=== PATIENT | male | born 1935 | race Caucasian/White ===

== ENCOUNTER 2019-02-12 15:56 | Emergency (ER) | payer MEDICARE ==
[~2019-02-12] VITALS: Ht 170.2 cm; Wt 78.6 kg
[~2019-02-12 15:56] MED LIST: ACET325; ACET500 PO; ALBU90OI61 INH; AMLO5 PO; ASPI81CH PO; Aspir 8181 MG PO; BETA.05TC TOP; CENTRUM SILVER1 EAC2 PO; CLOP75 PO; Colace250 MG GT; DILT180 PO; ELIQUIS5 MG PO; ERYT.5TO RIGHTEYE; FLUT.05NI; FLUT44OIA INH; Flonase 0.05% N16 GM; HYDR25SUP PR; Isosorbide Mono30 MG PO; LANS30EC; METO25ER PO; METO50ER PO; Norco 5-325 Ta1 EACH PO; OMEP20ER PO; PRAV20 PO; Prilosec Otc20 MG; ROSU10TA PO; Robaxin500 MG PO; TIMO.25OPS LEFTEYE; URSO; URSO300 PO; WARF4; XARELTO20 MG PO
[2019-02-12 16:52] LABS: BASOPHILS ABSOLUTE AUTO 0.04 K/mm3 (0.00-0.23); BASOPHILS PERCENT AUTO 1 % (0-2); EOSINOPHILS ABSOLUTE AUTO 0.13 K/mm3 (0.00-0.68); EOSINOPHILS PERCENT AUTO 2 % (0-6); Hematocrit 44.1 % (37.0-53.0); Hemoglobin 14.7 g/dL (13.5-17.5); IMMATURE GRAN ABSOLUTE AUTO 0.02 K/mm3 (0.00-0.10); IMMATURE GRAN PERCENT AUTO 0 % (0-1); LYMPHOCYTES ABSOLUTE AUTO 2.01 K/mm3 (0.84-5.20); LYMPHOCYTES PERCENT AUTO 35 % (21-46); MONOCYTES ABSOLUTE AUTO 0.62 K/mm3 (0.16-1.47); MONOCYTES PERCENT AUTO 11 % (4-13); Mean Corpuscular HGB 34.1 pg (26.0-34.0); Mean Corpuscular HGB Conc 33.3 g/dL (31.5-36.5); Mean Corpuscular Volume 102 fL (80-100); Mean Platelet Volume 10.1 fL (9.1-12.4); NEUTROPHILS PERCENT AUTO 52 % (41-73); Platelet Count 235 K/mm3 (150-400); RDW Standard Deviation 49.9 fL (35.1-46.3); Red Blood Cell Count 4.31 M/mm3 (4.30-5.90); White Blood Cell Count 5.82 K/mm3 (4.00-11.30)
[2019-02-12 17:06] LABS: International Normalized Ratio 1.01; Prothrombin Time Results 10.7 Sec (9.7-11.5)
[2019-02-12 17:43] LABS: Alanine Aminotransfer (ALT/SGP 43 U/L (12-78); Albumin, Blood 3.7 g/dL (3.4-5.0); Albumin/Globulin Ratio 0.9 (0.8-1.8); Alk Phos 242 U/L (50-136); Anion Gap 8 mmol/L (6-16); Aspartate Aminotrans (AST/SGOT 42 U/L (12-37); Bilirubin, Total 0.9 mg/dL (0.1-1.0); Blood Urea Nitrogen 15 mg/dL (8-24); Bun/Creatinine Ratio 13.4 (12.0-20.0); CO2, Blood 27 mmol/L (21-32); Calcium, Blood 9.3 mg/dL (8.5-10.1); Chloride, Blood 102 mmol/L (98-108); Creatinine, Blood 1.12 mg/dL (0.60-1.20); Globulin, Blood 4.1 g/dL (2.2-4.0); Glomerular Filtration Rate >60 (60-); Glucose, Blood 97 mg/dL (70-99); Potassium, Blood 3.9 mmol/L (3.5-5.5); Sodium, Blood 137 mmol/L (136-145); Total Protein, Blood 7.8 g/dL (6.4-8.2)
== END 2019-02-12 20:09 | disposition home or self-care (01) ==
LOC: ER 15:56
PROVIDERS: Physician Assistant
DX: R00.2 Palpitations (principal); K21.9 Gastro-esophageal reflux disease without esophagitis; I10 Essential (primary) hypertension; I48.91 Unspecified atrial fibrillation; Z87.891 Personal history of nicotine dependence; Z79.899 Other long term (current) drug therapy
CPT/HCPCS: 36415; 71046; 80053; 85025; 85610; 93005; 93010; 99284-25

== ENCOUNTER 2020-01-22 13:53 | Emergency (ER) | payer MEDICARE ==
[~2020-01-22] VITALS: Ht 170.2 cm; Wt 81.7 kg
[2020-01-22 14:47] LABS: BASOPHILS ABSOLUTE AUTO 0.06 K/mm3 (0.00-0.23); BASOPHILS PERCENT AUTO 1 % (0-2); EOSINOPHILS ABSOLUTE AUTO 0.19 K/mm3 (0.00-0.68); EOSINOPHILS PERCENT AUTO 3 % (0-6); Hematocrit 40.3 % (37.0-53.0); Hemoglobin 13.3 g/dL (13.5-17.5); IMMATURE GRAN ABSOLUTE AUTO 0.02 K/mm3 (0.00-0.10); IMMATURE GRAN PERCENT AUTO 0 % (0-1); LYMPHOCYTES ABSOLUTE AUTO 2.13 K/mm3 (0.84-5.20); LYMPHOCYTES PERCENT AUTO 32 % (21-46); MONOCYTES PERCENT AUTO 15 % (4-13); Mean Corpuscular HGB 33.3 pg (26.0-34.0); Mean Corpuscular Volume 101 fL (80-100); Mean Platelet Volume 10.2 fL (9.1-12.4); NEUTROPHILS ABSOLUTE AUTO 3.32 K/mm3 (1.96-9.15); NEUTROPHILS PERCENT AUTO 49 % (41-73); Platelet Count 250 K/mm3 (150-400); RDW Coefficient Variation 12.8 % (11.7-14.2); RDW Standard Deviation 47.8 fL (35.1-46.3); White Blood Cell Count 6.72 K/mm3 (4.00-11.30)
[2020-01-22 15:02] LABS: International Normalized Ratio 1.06; Prothrombin Time Results 11.3 Sec (9.7-11.5)
[2020-01-22 15:08] LABS: Alanine Aminotransfer (ALT/SGP 41 U/L (12-78); Albumin, Blood 3.1 g/dL (3.4-5.0); Albumin/Globulin Ratio 0.7 (0.8-1.8); Alk Phos 232 U/L (50-136); Anion Gap 4 mmol/L (6-16); Aspartate Aminotrans (AST/SGOT 40 U/L (12-37); Bilirubin, Total 1.1 mg/dL (0.1-1.0); Blood Urea Nitrogen 17 mg/dL (8-24); Bun/Creatinine Ratio 15.7 (12.0-20.0); CO2, Blood 28 mmol/L (21-32); Calcium, Blood 8.8 mg/dL (8.5-10.1); Chloride, Blood 105 mmol/L (98-108); Creatinine, Blood 1.08 mg/dL (0.60-1.20); Globulin, Blood 4.3 g/dL (2.2-4.0); Glomerular Filtration Rate >60 (60-); Glucose, Blood 106 mg/dL (70-99); Sodium, Blood 137 mmol/L (136-145); Total Protein, Blood 7.4 g/dL (6.4-8.2); Troponin I <0.015 ng/mL (0.000-0.040)
[2020-01-22 16:00] LABS: Source, Urine Clean Catch
[2020-01-22 16:12] LABS: Blood, Urine Neg (Neg); Glucose Qualitative, Urine Neg (Neg); Ketones, Urine 1+ (Neg); Leukocyte Esterase, Urine 1+ (Neg); Nitrite, Urine Neg (Neg); Protein, Urine 1+ (Neg); Specific Gravity, Urine 1.015 (1.003-1.022); Urobilinogen, Urine 2+ (Normal)
[2020-01-22 16:20] LABS: Appearance, Urine Clear (Clear); Bilirubin, Urine 1+ (Neg); Color, Urine Yellow (P-Yellow)
[2020-01-22 16:21] LABS: Bacteria Rare /hpf; Red Blood Cells, Urine 0-2 /hpf (0-2); Squamous Epithelial Cells Not Seen /hpf (Few); White Blood Cells, Urine 0-2 /hpf (0-5)
[2020-01-22] MEDS ORDERED: AMLO5 PO (16:29)
== END 2020-01-22 16:41 | disposition home or self-care (01) ==
LOC: ER 13:53
PROVIDERS: Physician Assistant
DX: G45.9 Transient cerebral ischemic attack, unspecified (principal); K21.9 Gastro-esophageal reflux disease without esophagitis; I10 Essential (primary) hypertension; I48.91 Unspecified atrial fibrillation; Z88.5 Allergy status to narcotic agent; Z91.048 Other nonmedicinal substance allergy status; Z79.899 Other long term (current) drug therapy; Z79.02 Long term (current) use of antithrombotics/antiplatelets; Z87.891 Personal history of nicotine dependence
CPT/HCPCS: 36415; 70450; 80053; 81001; 82947; 84484; 85025; 85610; 93005; 93010; 93880; 99285-25

== ENCOUNTER → 2021-11-02 | Outpatient (CLI) | payer MEDICARE ==
[~2021-11-02] MED LIST changes: +AMLODIPINE BESYL5 MG PO; +Betamethasone D15 G2 UD; +CLARISPRAY9.9 M1; +CYCL10 PO; +Celebrex200 MG PO; +DILT120 PO; +DILTIAZEM 24HR120 M2 PO; +ERYT1OIN UD; +LATA.005SO BOTHEYES; +LATANOPROST2.5 M1 BOTHEYES; +LOSARTAN POTAS100 M1 PO; +PRED20 PO; +PROAIR DIGIHAL90 MCG; -Prilosec Otc20 MG; +Prilosec Otc20 MG PO; +ROSUVASTATIN CA10 MG PO; +URSODIOL250 MG PO
== END | disposition home or self-care (01) ==
LOC: LAB SHORT 15:33 → PLD 15:33
DX: L57.0 Actinic keratosis (principal); L98.8 Other specified disorders of the skin and subcutaneous tissue
CPT/HCPCS: 88305

== ENCOUNTER → 2021-11-12 | Outpatient (CLI) | payer MEDICARE ==
[2021-11-12 10:41] LABS: BASOPHILS ABSOLUTE AUTO 0.04 K/mm3 (0.00-0.23); BASOPHILS PERCENT AUTO 1 % (0-2); EOSINOPHILS ABSOLUTE AUTO 0.19 K/mm3 (0.00-0.68); EOSINOPHILS PERCENT AUTO 3 % (0-6); Hematocrit 40.3 % (37.0-53.0); Hemoglobin 13.4 g/dL (13.5-17.5); IMMATURE GRAN ABSOLUTE AUTO 0.02 K/mm3 (0.00-0.10); IMMATURE GRAN PERCENT AUTO 0 % (0-1); LYMPHOCYTES PERCENT AUTO 22 % (21-46); MONOCYTES ABSOLUTE AUTO 0.69 K/mm3 (0.16-1.47); MONOCYTES PERCENT AUTO 12 % (4-13); Mean Corpuscular HGB 33.2 pg (26.0-34.0); Mean Corpuscular HGB Conc 33.3 g/dL (31.5-36.5); Mean Corpuscular Volume 100 fL (80-100); Mean Platelet Volume 9.7 fL (9.1-12.4); NEUTROPHILS PERCENT AUTO 62 % (41-73); Platelet Count 279 K/mm3 (150-400); RDW Coefficient Variation 14.8 % (11.7-14.2); RDW Standard Deviation 53.9 fL (35.1-46.3); Red Blood Cell Count 4.04 M/mm3 (4.30-5.90); White Blood Cell Count 5.94 K/mm3 (4.00-11.30)
[2021-11-12 10:50] LABS: Albumin/Globulin Ratio 0.6 (0.8-1.8); Bilirubin, Total 1.9 mg/dL (0.1-1.0); Bun/Creatinine Ratio 13.8 (12.0-20.0); Creatinine, Blood 1.23 mg/dL (0.60-1.20); Globulin, Blood 4.9 g/dL (2.2-4.0); Potassium, Blood 4.3 mmol/L (3.5-5.5); Total Protein, Blood 7.9 g/dL (6.4-8.2)
== END | disposition home or self-care (01) ==
LOC: LAB SHORT 10:35
PROVIDERS: General Practice
DX: R05.9 Cough, unspecified (principal)
CPT/HCPCS: 80053; 85025

== ENCOUNTER → 2022-12-16 | Outpatient (CLI) | payer OTHER | END | disposition home or self-care (01) | LOC: LAB SHORT 16:57 → LAB 16:57 → LAB FUT 12-09 16:10 | PROVIDERS: Internal Medicine | DX: R79.89 Other specified abnormal findings of blood chemistry (principal) | CPT/HCPCS: 81050 ==

== ENCOUNTER → 2023-08-18 | Outpatient (CLI) | payer OTHER ==
[2023-08-19 12:45] LABS: Stool Occult Blood Guaiac 1 Neg (Neg); Stool Occult Blood Guaiac 2 Pos (Neg)
[2023-08-19 12:46] LABS: Stool Occult Blood Guaiac 3 Neg (Neg)
== END ==
LOC: LAB 07:30 → LAB SHORT 07:30 → LAB FUT 08-04 10:35
PROVIDERS: Internal Medicine
DX: D64.9 Anemia, unspecified (principal)
CPT/HCPCS: 82272

== ENCOUNTER 2024-02-14 11:07 | Inpatient (IN) | payer OTHER ==
[~2024-02-14] VITALS: Ht 172.7 cm; Wt 73.0 kg
[~2024-02-14 11:07] MED LIST changes: -Prilosec Otc20 MG PO
[2024-02-14 11:40] LABS: BASOPHILS ABSOLUTE AUTO 0.04 K/mm3 (0.00-0.23); BASOPHILS PERCENT AUTO 1 % (0-2); EOSINOPHILS ABSOLUTE AUTO 0.12 K/mm3 (0.00-0.68); EOSINOPHILS PERCENT AUTO 3 % (0-6); Hematocrit 39.1 % (37.0-53.0); Hemoglobin 13.2 g/dL (13.5-17.5); IMMATURE GRAN ABSOLUTE AUTO 0.01 K/mm3 (0.00-0.10); IMMATURE GRAN PERCENT AUTO 0 % (0-1); LYMPHOCYTES ABSOLUTE AUTO 0.97 K/mm3 (0.84-5.20); LYMPHOCYTES PERCENT AUTO 22 % (21-46); MONOCYTES ABSOLUTE AUTO 0.68 K/mm3 (0.16-1.47); MONOCYTES PERCENT AUTO 16 % (4-13); Mean Corpuscular HGB 33.7 pg (26.0-34.0); Mean Corpuscular HGB Conc 33.8 g/dL (31.5-36.5); Mean Corpuscular Volume 100 fL (80-100); Mean Platelet Volume 9.9 fL (9.1-12.4); NEUTROPHILS ABSOLUTE AUTO 2.55 K/mm3 (1.96-9.15); NEUTROPHILS PERCENT AUTO 58 % (41-73); Platelet Count 190 K/mm3 (150-400); RDW Standard Deviation 55.3 fL (35.1-46.3); Red Blood Cell Count 3.92 M/mm3 (4.30-5.90); White Blood Cell Count 4.37 K/mm3 (4.00-11.30)
[2024-02-14] MEDS ORDERED: Ondansetron HCl 2 MG / ML 2ML Vial IV ONE (11:45)
[2024-02-14 12:04] LABS: Albumin, Blood 2.4 g/dL (3.4-5.0); Albumin/Globulin Ratio 0.4 (0.8-1.8); Bilirubin, Total 2.1 mg/dL (0.1-1.0); Bun/Creatinine Ratio 13.6 (12.0-20.0); Calcium, Blood 9.2 mg/dL (8.5-10.1); Creatinine, Blood 1.47 mg/dL (0.60-1.20); Globulin, Blood 5.4 g/dL (2.2-4.0); Potassium, Blood 2.9 mmol/L (3.5-5.5); Total Protein, Blood 7.8 g/dL (6.4-8.2)
[2024-02-14] MEDS ORDERED: Potassium Chloride 20 MEQ TabCR PO ONE ×2 (12:30→18:00)
[2024-02-14] MEDS ORDERED: Aspirin 325 MG Tab PO ONE (12:30)
[2024-02-14] MEDS ORDERED: Mag Sulfate 1 GM/D5% 100ML 100 ML IV STA (13:13)
[2024-02-14] MEDS ORDERED: Acetaminophen 325 MG TABLET PO PRN (13:50)
[2024-02-14] MEDS ORDERED: Nitroglycerin 0.4 MG SUBL SL PRN (13:55)
[2024-02-14] MEDS ORDERED: Lactated Ringer's 1,000 ML IV SCH (14:00)
--- NOTE | 2024-02-14 16:00 | NUR ---
PCU ADMISSION: REPORT RECEIVED FROM MERLE LUCIA IN ED. PT ARRIVED TO PCU-02 AT APPROX 1510. ON ARRIVAL, THE PT IS A&O TO ALL, PLEASANT & COOPERATIVE W/ CARE MEASURES, JOKING W/ STAFF. HE IS LEGALLY BLIND & [place], HEARING AIDS NOT IN AT THAT TIME, BUT PT ABLE TO HEAR CONVERSATION IF SPOKEN LOUDLY/ SLOWLY. NEVIN, HAS BEEN AMBULATING W/ FWW AT HOME FOR APPROX 1.5 MONTHS NOW. LS CLEAR T/O, PT ON RA W/ O2 SATS > 94%. MONITOR SHOWS V-PACED RHYTHM W/ HR 100s. BP SOFT W/ MAP > 65. PT's FAMILY STS THAT NORMAL SBP FOR THIS PT IS 90s - SEE VS. PT STS FEELING HUNGRY, HAS CHRONIC CONSTIPATION BUT HAD SUCCESSFUL BM THIS AM [place] SKINNER. 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 VOIDS URINE W/O DIFFICULTY USING URINAL. SKIN CONDITION OVERALL FRAGILE, INTACT. SMALL BLANCHABLE AREA OF REDNESS NOTED TO COCCYX, PT REPOSITIONS SELF PRN FOR COMFORT. WILL CONTINUE TO MONITOR & UPDATE NEEDED.
[2024-02-14] MEDS ORDERED: SOAANZ20 M1 PO (16:43)
[2024-02-14] MEDS ORDERED: POTCHL20ER PO (16:45)
[2024-02-14] MEDS ORDERED: SPIR25 PO (16:46)
[2024-02-14] MEDS ORDERED: Bisoprolol Fumar5 MG PO (16:49)
[2024-02-14] MEDS ORDERED: Atarax10 MG PO (16:51)
[2024-02-14 17:47] LABS: Anti-Xa UFH, PHA Monitoring 0.87 IU/mL; International Normalized Ratio 1.3; Prothrombin Time Results 13.6 Sec (9.7-11.5)
--- NOTE | 2024-02-14 18:15 | NUR ---
"Spiritual Care | Pt. request/referral Pt. is awake in bed and welcomes my visit. Pts. spouse and daughter at bedside. The family all are pleasant and known to this lead architect from the community. Facilitated a medical life review. Listen with interest, empathy and a calming pastoral presence. Pt. displays evidence of awareness and engagement. Spouse and daughter display evidence of being supportive advocates familiar with the Pts. health history. Spouse verbalized that the Pts. daughter (who is present) is also a nurse. The Pt. requested prayer. Prayed with Pt. The family verbalized gratitude for the spiritual care visit, and welcomed this lead architect to return."
--- NOTE | 2024-02-14 18:44 | NUR ---
DR FRANCO / SHIFT SUMMARY: PROVIDER AT BEDSIDE FOR CONSULTATION AT APPROX 1700 THIS EVENING. HE HAS CONTACTED [employer] REP, DEMETRIO, TO COME TO BEDSIDE & REPROGRAM PACER. THEY HAVE REVIEWED CURRENT PACER FUNCTION & MADE CHANGES. RHYTHM NOW OCCASIONALLY V-PACED W/ UNDERLYING AFIB, HR 60-70s, BP REMAINS SOFT W/ MAP > 65. PROVIDER HAS ORDERED ECHO TO BE COMPLETED IN AM & BNP TO BE CHECKED NOW. HE HAS BEEN NOTIFIED OF BNP RESULTS & ORDERED PT's HOME DOSE OF TORSEMIDE TO START TOMORROW. HEART HEALTHY DIET ORDERED. CBG 65 WHILE NPO, IMPROVED AT RECHECK AFTER DIET ORDERED. PT's & DAUGHTER HAVE BEEN AT BEDSIDE DURING THIS TIME & VERBALIZE UNDERSTANDING OF POC. NO ACUTE CHANGES SINCE PRIOR UPDATES. PT REMAINS A&O, PLEASANT & COOPERATIVE. STS FEELING "UNSTEADY" WHILE STANDING TO URINATE THIS EVENING, VS UNCHANGED. LS CLEAR T/O, PT ON RA W/ O2 SATS > 94%. CARDIAC DESCRIBED ABOVE. PT TOLERATING PO INTAKE WELL. VOIDED USING URINAL, URINE NOTED TO BE DARK & PO FLUIDS ENCOURAGED. SKIN CONDITION UNCHANGED, PT REPOSITIONING SELF PRN FOR COMFORT. WILL CONTINUE TO MONITOR & REPORT OFF TO ONCOMING RN.
[2024-02-14 20:13] VITALS: BP 86/59
[2024-02-14] MEDS ORDERED: Heparin Sodium,Porcine/0.5 NS 500 ML IV SCH (21:15)
[2024-02-14] MEDS ORDERED: NS 1,000 ML IV SCH (23:20)
[2024-02-14] MEDS ORDERED: NS 1,000 ML IV ONE (23:20)
--- NOTE | 2024-02-14 23:20 | NUR ---
PHYSICIAN COMMUNICATION CONTACTED NICOLE SANDERS TO NOTIFY HIM THAT THE PATIENT IS HYPOTENSIVE WITH SBP IN THE 70'S AND MAP IN THE 50'S, CONFIRMED WITH MANUAL BLOOD PRESSURE. INFORMED HIM THAT THE PATIENT'S SBP RUNS IN THE HIGH 80'S AND 90'S AT BASELINE WITH MAP >65. NICOLE SANDERS ORDERED FOR THE PATIENT TO HAVE A 1 LITER BOLUS OF NS AND THEN CONTINUOUS NS AT 100 ML/HR.
[2024-02-14 23:43] VITALS: BP 78/53
[2024-02-15] VITALS (43 sets, daily range): BP systolic 70–108; BP diastolic 48–74
--- NOTE | 2024-02-15 01:29 | NUR ---
PHYSICIAN COMMUNICATION CONTACTED DR ARBOLEDA TO NOTIFY HIM THAT THE PATIENT HAD RECEIVED A 1,000 ML BOLUS OF NS AND CONTINUOUS NS AT 100 ML/HR DUE TO HYPOTENTION WITH SBP IN THE 70'S AND MAP IN THE 50'S. ALSO INFORMED HIM THAT THE PATIENT WAS PLACED ON 2 LITERS OF OXYGEN VIA NC TO MAINTAIN SPO2 >90%. DR ARBOLEDA ORDERED AN ADDITIONAL 500 ML BOLUS OF NORMAL SALINE AND SAID FOR THE GOAL MAP TO BE >60. WILL CONTINUE TO MONITOR.
[2024-02-15] MEDS ORDERED: NS 500 ML IV ONE (01:30)
[2024-02-15 04:53] LABS: BASOPHILS ABSOLUTE AUTO 0.04 K/mm3 (0.00-0.23); BASOPHILS PERCENT AUTO 1 % (0-2); EOSINOPHILS ABSOLUTE AUTO 0.23 K/mm3 (0.00-0.68); EOSINOPHILS PERCENT AUTO 5 % (0-6); Hematocrit 33.8 % (37.0-53.0); Hemoglobin 11.6 g/dL (13.5-17.5); IMMATURE GRAN ABSOLUTE AUTO 0.01 K/mm3 (0.00-0.10); IMMATURE GRAN PERCENT AUTO 0 % (0-1); LYMPHOCYTES PERCENT AUTO 21 % (21-46); MONOCYTES ABSOLUTE AUTO 0.72 K/mm3 (0.16-1.47); MONOCYTES PERCENT AUTO 17 % (4-13); Mean Corpuscular HGB 34.5 pg (26.0-34.0); Mean Corpuscular HGB Conc 34.3 g/dL (31.5-36.5); Mean Corpuscular Volume 101 fL (80-100); Mean Platelet Volume 10.1 fL (9.1-12.4); NEUTROPHILS ABSOLUTE AUTO 2.36 K/mm3 (1.96-9.15); NEUTROPHILS PERCENT AUTO 56 % (41-73); Platelet Count 159 K/mm3 (150-400); RDW Standard Deviation 55.2 fL (35.1-46.3); Red Blood Cell Count 3.36 M/mm3 (4.30-5.90); White Blood Cell Count 4.26 K/mm3 (4.00-11.30)
[2024-02-15 05:14] LABS: Alanine Aminotransfer (ALT/SGP 26 U/L (12-78); Albumin, Blood 1.8 g/dL (3.4-5.0); Albumin/Globulin Ratio 0.4 (0.8-1.8); Alk Phos 262 U/L (50-136); Anion Gap 9 mmol/L (3-11); Aspartate Aminotrans (AST/SGOT 50 U/L (12-37); Bilirubin, Total 1.6 mg/dL (0.1-1.0); Blood Urea Nitrogen 17 mg/dL (8-24); Bun/Creatinine Ratio 13.9 (12.0-20.0); CHOL/HDL RATIO 4.2; CO2, Blood 26 mmol/L (21-32); Calcium, Blood 8.1 mg/dL (8.5-10.1); Chloride, Blood 112 mmol/L (98-108); Cholesterol 80 mg/dL (50-200); Creatinine, Blood 1.22 mg/dL (0.60-1.20); Globulin, Blood 4.3 g/dL (2.2-4.0); Glomerular Filtration Rate 57 (60-); Glucose, Blood 100 mg/dL (70-99); HDL Cholesterol 19 mg/dL (>39); LDL/HDL RATIO 2.6; Low Density Lipoprotein Chol 50 mg/dL (0-110); Magnesium, Blood 2.1 mg/dL (1.6-2.4); Potassium, Blood 3.7 mmol/L (3.5-5.5); Sodium, Blood 143 mmol/L (136-145); Total Protein, Blood 6.1 g/dL (6.4-8.2); Triglycerides 57 mg/dL (30-160); Very Low Density Lipoprot Chol 11 mg/dL (6-32)
[2024-02-15] MEDS ORDERED: Dose Adjust by Pharmacy XX STA ×3 (05:42→21:49)
[2024-02-15] MEDS ORDERED: Omeprazole 20 MG CapCR PO SCH (06:00)
--- NOTE | 2024-02-15 06:29 | NUR ---
SHIFT SUMMARY PATIENT ALERT AND ORIENTED X4. HAD NO COMPLAINTS OF PAIN OR SHORTNESS OF BREATH. AFTER RECEIVING THE 500 ML NORMAL SALINE BOLUS, PATIENT'S MAP HAS BEEN GREATER THAN 60. PATIENT ASYMPTOMATIC WITH BLOOD PRESSURE. CONTINUES ON 2 LITERS O2 VIA NC. WILL CONTINUE TO MONITOR. CALL LIGHT WITHIN REACH.
[2024-02-15] MEDS ORDERED: Atorvastatin 40 MG Tab PO SCH (09:00)
[2024-02-15] MEDS ORDERED: dilTIAZem HCL 120 MG CAP.CD PO SCH (09:00)
[2024-02-15] MEDS ORDERED: Enoxaparin 40 MG/0.4 ML SYR SC SCH (09:00)
[2024-02-15] MEDS ORDERED: Torsemide 20 MG TAB PO SCH (09:00)
[2024-02-15] MEDS ORDERED: Aspirin 81 MG Chew PO SCH (09:00)
[2024-02-15] MEDS ORDERED: Fluticasone 0.05% Nasal Spray SCH (09:00)
[2024-02-15] MEDS ORDERED: Losartan Potassium 50 MG Tab PO SCH (09:00)
[2024-02-15] MEDS ORDERED: Potassium Chloride 20 MEQ/15 ML UDC PO ONE (10:10)
--- NOTE | 2024-02-15 10:39 | NUR ---
Pt. is awake and sitting upon the side of his bed. Pt. welcomes my visit. Spouse is present and is sitting next to the Pt. Facilitated an update of the Pts. overnight experience. Pt. verbalized that he slept off and on as there were many visits and blood draws. Pt. also verbalized that he was waiting for results from some of his tests. Seek to normalize the Pt. experience. Pt. displays evidence of a strong michael, but did request prayer. Prayed with Pt. and spouse. Both verbalized graititude for the spiritual care visit, and welcomed this scrapper to return.
--- NOTE | 2024-02-15 15:38 | NUR ---
"Family Request | Spiritual Care Follow up. Pts. daughter requested I visit the Pt. Pt. had just received a confirmed cancer diagnosis, and this credit clerk was asked to visit. Pt. is quiet in bed when I enter the room. Spouse is at bedside and briefed me on the diagnosis. Listened with empathy amd a calming presence. After some time had passed pastoral care and perspective is shared. Pt. displayed evidence of being both impacted by the diagnosis and reconciling that emotion with his michael and eternal hope. Pt. displayed evidence of being aware and engaged. Prayed with the Pt. and spouse and will remain avilable to the family throughout his hospital stay."
--- NOTE | 2024-02-15 17:20 | NUR ---
SHIFT SUMMARY PT A&Ox4, CALLS AND COMMUNICATES NEEDS APPROPRIATELY. BP SOFT WITH SBP 80-100's, MAP >60, ASYMPTOMATIC, DENIES CP/PRESSURE. AFIB/PACED 60's. CONTINENT OF URINE AND BOWEL, 1 ASSIST TO BATHROOM. PT IS LEGALLY BLIND AND [place]. HEPARIN gtt INFUSING AT 9 units/kg/hour PER PHARMACY. FAMILY AT BEDSIDE THROUGHOUT DAY. NO C/O PAIN. NO OTHER EVENTS, WILL REPORT TO ONCOMING RN.
[2024-02-16] VITALS (7 sets, daily range): BP systolic 84–97; BP diastolic 52–68
[2024-02-16 04:30] LABS: BASOPHILS ABSOLUTE AUTO 0.06 K/mm3 (0.00-0.23); BASOPHILS PERCENT AUTO 1 % (0-2); EOSINOPHILS ABSOLUTE AUTO 0.26 K/mm3 (0.00-0.68); EOSINOPHILS PERCENT AUTO 6 % (0-6); Hematocrit 34.8 % (37.0-53.0); Hemoglobin 11.6 g/dL (13.5-17.5); IMMATURE GRAN ABSOLUTE AUTO 0.01 K/mm3 (0.00-0.10); IMMATURE GRAN PERCENT AUTO 0 % (0-1); LYMPHOCYTES ABSOLUTE AUTO 0.66 K/mm3 (0.84-5.20); LYMPHOCYTES PERCENT AUTO 15 % (21-46); MONOCYTES ABSOLUTE AUTO 0.59 K/mm3 (0.16-1.47); MONOCYTES PERCENT AUTO 13 % (4-13); Mean Corpuscular HGB Conc 33.3 g/dL (31.5-36.5); Mean Corpuscular Volume 102 fL (80-100); Mean Platelet Volume 9.9 fL (9.1-12.4); NEUTROPHILS ABSOLUTE AUTO 2.82 K/mm3 (1.96-9.15); NEUTROPHILS PERCENT AUTO 64 % (41-73); Platelet Count 163 K/mm3 (150-400); RDW Coefficient Variation 15.4 % (11.7-14.2); Red Blood Cell Count 3.41 M/mm3 (4.30-5.90)
[2024-02-16 05:01] LABS: Bun/Creatinine Ratio 14.4 (12.0-20.0); Creatinine, Blood 1.11 mg/dL (0.60-1.20)
--- NOTE | 2024-02-16 05:18 | NUR ---
1915 Assumed care of pt, bedside report completed. Shift plan of care reviewed with pt and family members at bedside, all questions answered. Family does have concerns about ability to recieve test results from multiple providers include [facility]. Encouraged pt and to enroll pt in Patient Portal for most up to date information. Pt with uneventful shift, appears to have slept well and has repeatedly denied pain. Family expresses concern over future plan of care now that they recieved a diagnosis of Liver CA from Drs office yesterday per their report. Pt MAEW though does endorse global weakness that has been unchanged. BP low but stable and above parameters of MAP above 60 per MD order. Please see full assessment for full details. No further complaints or concerns at this time, will continue to monitor.
[2024-02-16] MEDS ORDERED: Dose Adjust by Pharmacy XX STA (05:23)
[2024-02-16] MEDS ORDERED: Apixaban 5 MG Tab PO SCH (09:00)
--- NOTE | 2024-02-16 09:52 | NUR ---
AM NOTE PT ALERT, ORIENTED X4; [place] AND LEGALLY BLIND. PT ABLE TO MAKE NEEDS KNOWN. PT UP WITH SBA AND WALKER. PT DENIES PAIN, CHEST PAIN/PRESSURE, SOB, NAUSEA, DIZZINESS AND NUMB/TINGLING. TELE AFLUTTER, BP SOFT. SPO2 >90% ON RA, BREATHING EVEN AND UNLABORED. ABD SOFT, NONTENDER, +BT T/O. EDEMA NOTED TO BLE, LEFT WORSE THAN RIGHT. OTHER VSS. WILL CONTINUE TO MONITOR.
[2024-02-16] MEDS ORDERED: ACET325 PO (11:38)
[2024-02-16] MEDS ORDERED: ELIQUIS5 M2 PO (11:39)
--- NOTE | 2024-02-16 11:39 | NUR ---
Pt. is awake and sitting in a chair when he welcomes my visit. Spouse is present. Pt. is pleasant. Soon after my arrival nurse Hernández came and informed Pt. that he would be discharged home. Facilitated a review of the pts. plans, and Pt. verbalized some concern about who they should be contacting after Pt. discharges. Prayed with the Pt. pt. then requested more prayer for a family member in [place]. Prayed again with Pt. and spouse. Pt. verbalized gratitude for the spiritual care visit. Updated nurse Hernández of some of the families questions prior to discharge.
--- NOTE | 2024-02-16 12:37 | NUR ---
DISCHARGE SUMMARY NO ACUTE CHANGES T/O SHIFT. VSS. PT AND FAMILY EDUCATED ON DISCHARGE INSTRUCTIONS, FOLLOW UP APPOINTMENT, PRESCRIPTIONS AND HEART FAILURE. PRESCRIPTION FAXED TO [facility], PER PT REQUEST. PT LEFT VIA WHEELCHAIR AT 1245.
== END 2024-02-16 12:45 | disposition home or self-care (01) | DRG 280 ==
LOC: ER 11:07 → PCU 13:50
PROVIDERS: Physician Assistant; ADMIT Student in an Organized Health Care Education/Training Program
DX: I35.0 Nonrheumatic aortic (valve) stenosis (principal); I50.33 Acute on chronic diastolic (congestive) heart failure; I21.A1 Myocardial infarction type 2; I48.19 Other persistent atrial fibrillation; I11.0 Hypertensive heart disease with heart failure; I49.5 Sick sinus syndrome; Z95.0 Presence of cardiac pacemaker; I25.10 Atherosclerotic heart disease of native coronary artery without angina pectoris; K74.60 Unspecified cirrhosis of liver; Z85.46 Personal history of malignant neoplasm of prostate; J45.909 Unspecified asthma, uncomplicated; R91.1 Solitary pulmonary nodule; K21.9 Gastro-esophageal reflux disease without esophagitis; E87.6 Hypokalemia; H54.8 Legal blindness, as defined in USA; M10.9 Gout, unspecified; Z98.890 Other specified postprocedural states; Z88.8 Allergy status to other drugs, medicaments and biological substances; Z88.5 Allergy status to narcotic agent; Z79.01 Long term (current) use of anticoagulants; Z79.899 Other long term (current) drug therapy; Z87.891 Personal history of nicotine dependence
CPT/HCPCS: 36415; 71046; 80048; 80053; 80061; 82947; 83735; 83880; 84484; 85025; 85520; 85610; 85730; 93005; 93010; 93308; 93321; 94762; 96374; 99285-25; A9270; J1644; J2405; J3475; J7030; J7040; J7120